=== PATIENT | female | born 1995 | race Caucasian/White ===

== ENCOUNTER 2019-09-12 16:30 | Emergency (ER) | payer BC, OTHER ==
[2019-09-12] MEDS ORDERED: METOCLOPRAMIDE HCL INJECTION 10 MG/2 ML VIAL IVPUSH ONE (16:37)
[2019-09-12 16:39] VITALS: BP 106/77; PULSE 72; TEMP 98.1; BMI 26.5
--- NOTE | 2019-09-12 17:10 | PDOC ---
Documentation entered by Lyle Hernandez SCRIBE, acting as scribe for Rashmi To MD. Rashmi To MD: This documentation has been prepared by the Mary duenas Angel, SCRIBE, under my direction and personally reviewed by me in its entirety. I confirm that the documentation accurately reflects all work, treatment, procedures, and medical decision making performed by me. History of Present Illness - General Chief Complaint: Injury Stated Complaint: RIGHT HAND AND WRIST INJURY Time Seen by Provider: 09/12/19 16:35 History Source: Patient Exam Limitations: No Limitations - History of Present Illness Initial Comments: 09/12/19 16:58 The patient is a 24 year old female with no significant past medical history who presents to the ED with an injury to her right wrist. The patient states she hit her right hand against a tree with a closed fist. The patient is complaining of right wrist and 3rd digit pain which is worse with movement. The patient is left hand dominant. The patient has no further complaints here in the ED. Past History - Medical History Allergies/Adverse Reactions: Allergies Allergy/AdvReac Type Severity Reaction Status Date / Time No Known Allergies Allergy Verified 09/12/19 16:31 Home Medications: Ambulatory Orders Sertraline HCl [Zoloft] 100 mg PO DAILY 09/12/19 COPD: No Psychiatric Problems: Yes (ANXIETY DEPRESSION) - Immunization History Immunization Up to Date: Yes - Psycho-Social/Smoking History Smoking History: Never smoked - Substance Abuse Hx (Audit-C & DAST Scrn) How often the patient has a drink containing alcohol: 4 0r more times/wk Number of drinks the patient has on a typical day: 1 or 2 How often the patient has six or more drinks on one occasion: Never Score: In Men: 4 or > Positive; In Women: 3 or > Positive: 4 Screen Result (Pos requires Nsg. Audit-10AR): Positive In the last yr the pt used illegal drug/Rx for NonMed reason: Yes Score: Yes response is considered Positive: 1 Screen Result (Positive result requires Nsg. DAST-10): Positive Review of Systems - Review of Systems Able to Perform ROS?: Yes Comments:: 09/12/19 16:59 GENERAL/CONSTITUTIONAL: No fever or chills. No weakness. HEAD, EYES, EARS, NOSE AND THROAT: No change in vision. No ear pain or discharge. No sore throat. CARDIOVASCULAR: No chest pain or shortness of breath. RESPIRATORY: No cough, wheezing, or hemoptysis. GASTROINTESTINAL: No nausea, vomiting, diarrhea or constipation. GENITOURINARY: No dysuria, frequency, or change in urination. MUSCULOSKELETAL: +Right wrist and 3rd digit pain. No neck or back pain. SKIN: No rash NEUROLOGIC: No headache, vertigo, loss of consciousness, or change in strength/sensation. ENDOCRINE: No increased thirst. No abnormal weight change. HEMATOLOGIC/LYMPHATIC: No anemia, easy bleeding, or history of blood clots. ALLERGIC/IMMUNOLOGIC: No hives or skin allergy. *Physical Exam - Vital Signs Last Vital Signs Temp Pulse Resp BP Pulse Ox 98.1 F 72 14 106/77 100 09/12/19 16:31 09/12/19 16:31 09/12/19 16:31 09/12/19 16:31 09/12/19 16:31 - Physical Exam 09/12/19 17:03 GENERAL: Awake, alert, and fully oriented, in no acute distress EYES: PERRLA, EOMI, sclera anicteric, conjunctiva clear ENT: Auricles normal inspection, hearing grossly normal, nares patent, oropharynx clear without exudates. Moist mucosa LUNGS: Breath sounds equal, clear to auscultation bilaterally. No wheezes, and no crackles HEART: Regular rate and rhythm, normal S1 and S2, no murmurs, rubs or gallops ABDOMEN: Soft, nontender, normoactive bowel sounds. No guarding, no rebound. No masses EXTREMITIES: +Small amount of bruising and minimal tenderness on the 3rd mcp and ulnar aspect of the right wrist. No snuffbox tenderness. Pronation and supination movements intact. Normal range of motion. Good radial pulses. Flexion/extension of wrist intact. Flexion/extension/adduction/abduction intact in all digits NEUROLOGICAL: Cranial nerves II through XII grossly intact. Normal speech, normal gait SKIN: Warm, Dry, normal turgor, no rashes or lesions noted. ED Treatment Course - Medications Given in the ED: ED Medications Discontinued Medications Generic Name Dose Route Start Last Admin Trade Name Freq PRN Reason Stop Dose Admin Metoclopramide HCl 10 mg 09/12/19 16:37 09/12/19 16:42 Reglan Injection - IVPUSH 09/12/19 16:38 Not Given ONCE ONE Medical Decision Making - Medical Decision Making 09/12/19 17:09 24 yo F with R wrist and 3rd MCP joint pain, possible fx vs. sprain. Plan: -xray R hand/wrist -reassess, if imaging negative for fx will d/c with return precautions, recommend supportive care at home and PMD f/u as needed This clinical encounter is taking place during a federal and state health care emergency attributable to the novel [place] Virus pandemic. The [place] of the Department of Health and Human Services has declared, pursuant to the Public Health Service Act 319F-3 (42 U.S.C. 247d-6d), that a covered persons activities related to medical countermeasures against COVID-19 will be immune from liability under Federal and State law. 09/12/19 17:56 xray without any evidence of fracture. Will d/c with return precautions, recommend PMD f/u as needed and supportive care at home. Discharge - Discharge Information Problems reviewed: Yes Clinical Impression/Diagnosis: Wrist sprain Qualifiers: Encounter type: initial encounter Laterality: right Qualified Code(s): S63.501A - Unspecified sprain of right wrist, initial encounter Condition: Stable Disposition: HOME - Admission No - Follow up/Referral - Patient Discharge Instructions Patient Printed Discharge Instructions: DI for Wrist Sprain Additional Instructions: You were seen for a wrist sprain. You can take tylenol or motrin at home as needed for pain. You can apply ice to the area as needed. Return to the ED for new or worsening symptoms. You should follow up with your PMD as needed. Print Language: SENEGALESE - Post Discharge Activity
== END 2019-09-12 18:17 | disposition home or self-care (01) ==
LOC: FER 16:30
PROC: 3E033NZ Introduction of Analgesics, Hypnotics, Sedatives into Peripheral Vein, Percutaneous Approach (ICD-10-PCS; principal; 2019-09-12)
DX: S63.501A Unspecified sprain of right wrist, initial encounter (principal)
CPT/HCPCS: 73110-TC-RT-FY; 73130-TC-RT-FY; 96372; 99284-25